=== PATIENT | female | born 1980 | race Caucasian/White ===

== ENCOUNTER 2017-03-20 10:11 | Emergency (ER) | payer BC, OTHER ==
[~2017-03-20] VITALS: Ht 170.2 cm; Wt 63.0 kg
[2017-03-20 10:30] VITALS: BP 131/73
--- NOTE | 2017-03-20 11:01 | RAD ---
WRIST 3V LEFT History:Fall down stairs this a.m. Comparison: None Findings:3 views of the left wrist are submitted. There is posttraumatic, comminuted, slightly displaced fracture of the distal ulna. Impression: 1.There is distal ulnar fracture.
--- NOTE | 2017-03-20 12:22 | PHYS DOC ---
Past Medical History Past Medical History: Migraines Past Surgical History: No Surgical History Alcohol Use: None Drug Use: None Adult General Chief Complaint Chief Complaint: WRIST PAIN HPI HPI Patient is a 36 year old female who presents to the ED with left wrist pain after falling down stairs. She initially went to an urgent care and [place] where they said that she had broken her arm but they did not have any ability to splint her and brought her on to our emergency department. She declines pain medication. She denies any other injury. Review of Systems Review of Systems Constitutional: Denies fever or chills [] Respiratory: Denies cough or shortness of breath [] Cardiovascular: No additional information not addressed in HPI [] Musculoskeletal: See history of present illness Integument: Denies rash or skin lesions [] Neurologic: Denies headache, focal weakness or sensory changes [] Allergies Allergies Allergies Coded Allergies Type Severity Reaction Last Updated Verified No Known Drug Allergies 03/20/17 No Physical Exam Physical Exam Constitutional: Well developed, well nourished, no acute distress, non-toxic appearance. [] Neck: Normal range of motion, no tenderness, supple, no stridor. [] Cardiovascular:Heart rate regular rhythm, no murmur [] Lungs & Thorax: Bilateral breath sounds clear to auscultation [] Skin: Warm, dry, no erythema, no rash. [] Back: No tenderness, no CVA tenderness. [] Extremities: Pain palpation over the ulna, pulses and sensation are intact distal to injury, there is mild swelling noted Neurologic: Alert and oriented X 3, normal motor function, normal sensory function, no focal deficits noted. [] Psychologic: Affect normal, judgement normal, mood normal. [] Current Patient Data Vital Signs Vital Signs Date Time Temp Pulse Resp B/P (MAP) Pulse Ox O2 Delivery O2 Flow Rate FiO2 03/20/17 10:30 98.8 85 18 99 Room Air 98.8 EKG EKG [] Radiology/Procedures Radiology/Procedures [] PATIENT: JOSE MANN ACCOUNT: [id number] : 1980 LOCATION: ER AGE: 36 SEX: F EXAM STATUS: PRE ER ORD. PHYSICIAN: ANALY ROBERSON APRN REASON: FELL DOWN STAIRS PROCEDURE: WRIST 3V LEFT WRIST 3V LEFT History:Fall down stairs this a.m. Comparison: None Findings:3 views of the left wrist are submitted. There is posttraumatic, comminuted, slightly displaced fracture of the distal ulna. Impression: 1.There is distal ulnar fracture. DICTATED and SIGNED BY: CORBIN MEADOWS MD DATE: 03/20/17 1058 CC: FAUSTO EDMOND; ANALY ROBERSON APRN ~ Impressions: Patient was placed in a sugar tong splint by the emergency public health technician. Following splinting, pulses were intact and neurovascular status was normal. Course & Med Decision Making Course & Med Decision Making Pertinent Labs and Imaging studies reviewed. (See chart for details) []1. Distal ulnar fracture The patient has been given splint and fracture care instructions. She is to follow-up with Dr. Gonzáles's office on Wednesday. She declined pain medication and states that she will use ibuprofen at home. Dragon Disclaimer Dragon Disclaimer This electronic medical record was generated, in whole or in part, using a voice recognition dictation system. Departure Departure Impression: Primary Impression: Distal end of ulna fracture, closed Disposition: HOME, SELF-CARE Condition: STABLE Referrals: FAUSTO EDMOND (PCP) FERNANDA GONZÁLES MD Patient Instructions: Fracture Care, Generic, Splint Care, [id number] Additional Instructions: Please call Dr Gonzáles's office to be seen on Wednesday. ANALY ROBERSON APRN Mar 20, 2017 12:22
== END 2017-03-20 11:45 | disposition home or self-care (01) ==
LOC: ER 10:11
DX: S52.602A Unspecified fracture of lower end of left ulna, initial encounter for closed fracture (principal); G43.909 Migraine, unspecified, not intractable, without status migrainosus; W10.9XXA Fall (on) (from) unspecified stairs and steps, initial encounter; Y93.89 Activity, other specified; Y92.89 Other specified places as the place of occurrence of the external cause; Y99.8 Other external cause status
CPT/HCPCS: 29125; 73110; 99284-25